=== PATIENT | male | born 2000 | race Caucasian/White ===

== ENCOUNTER 2022-09-29 11:17 | Emergency (ER) | payer SELFPAY ==
[2022-09-29] MEDS ORDERED: Diphtheria,Pertussis(Acell),Tetanus Vaccine 0.5 ML Syringe IM ONE (11:32)
[2022-09-29] MEDS ORDERED: Bacitracin Oint 1 GM U/D Packet TOP ONE (11:33)
== END 2022-09-29 14:32 | disposition home or self-care (01) ==
LOC: MW.ED 11:17
DX: S81.832A Puncture wound without foreign body, left lower leg, initial encounter (principal); Z23 Encounter for immunization; W32.0XXA Accidental handgun discharge, initial encounter
CPT/HCPCS: 73590-26-LT; 73590-LT; 90471; 90715; 99284; 99284-25